=== PATIENT | male | born 1960 | race Caucasian/White ===

== ENCOUNTER 2021-05-13 07:52 | Outpatient (CLI) | payer OTHER, SELFPAY ==
--- NOTE | ~2021-05-13 | CT_ITS ---
EXAMINATION: CT soft tissue neck w con EXAM DATE: 05/13/2021 08:38 INDICATION: Lymphadenitis, sometimes difficulty swallowing. TECHNIQUE: Spiral CT of the neck was performed following intravenous injection of 75 mL Omnipaque 350 . Axial, coronal and sagittal images were reviewed. The dose-length product (DLP) for this examinat ion was 615.92 mGy-cm. The exposure was tailored according to patient size (auto mA exposure control ), and iterative reconstruction (ASIR) was used as additional dose reduction technique. There is no prior study for comparison. FINDINGS: There are multiple pathologically enlarged bilateral supraclavicular, internal jugular princess n, posterior cervical triangle lymph nodes. One of the larger lymph nodes on the left measures 1.6 x 2.4 cm and on the right measures 2.0 x 1.6 cm. There are also pathologically enlarged bilateral axill frankie lymph nodes. The superior mediastinal lymph nodes are within normal size limits. One of the righ t posterior cervical triangle lymph nodes on axial image 56 has necrosis. There is also thickened padmini opharyngeal lymphoid tissue bilaterally. Overall appearance is most consistent with lymphoma. Conside r ultrasound-guided supraclavicular core biopsy. The thyroid gland is unremarkable. The submandibular and parotid glands are symmetric. The supe rior mediastinum is unremarkable. The airway is unremarkable. Parapharyngeal and pre-glottic fat planes are preserved. The opacified vasculature is patent. The orbits are unremarkable. Visuali zed sinuses and mastoid air cells are well aerated. There is cervical spondylosis. IMPRESSION: Extensive lymphadenopathy as described above, appearance most consistent with lymphoma. C onsider chest abdomen pelvis CT and ultrasound-guided biopsy. Reviewed, dictated and finalized at location B. IMPRESSION: Extensive lymphadenopathy as described above, appearance most consi stent with lymphoma. Consider chest abdomen pelvis CT and ultrasound-guided bio psy.
--- NOTE | ~2021-05-13 | XR_ITS ---
XR cervical spine 4-5V DATE: 05/13/2021 08:21 INDICATION: Bilateral swollen lymph nodes TECHNIQUE: AP, open-mouth, lateral, swimmer views COMPARISON: None FINDINGS: C1 and C2 are normally aligned and the odontoid process is intact. No fracture or dislocati on, locked facet or prevertebral soft tissue swelling. There is approximately 1.6 mm anterolisthesis at C2-3. There is moderately severe degenerative disc disease at C3-4. There is moderate degenerative disc disease and mild retrolisthesis at C4-5. There is mild degenerative disc disease and minimal anterolisthesis at C5-6. There is moderately severe degenerative disc disease and minimal anterolisthesis C6-7. Degenerative change at the apophyseal and uncovertebral joints. IMPRESSION: Cervical spondylosis Reviewed, dictated and finalized at location A. IMPRESSION: Cervical spondylosis
[2021-05-13 08:28] LABS: Estimated Glomerular Filt Rate 56
== END 2021-05-13 07:53 | disposition home or self-care (01) ==
LOC: ANHIMG 08:00
PROVIDERS: Visit Provider Nurse Practitioner Adult Health
DX: I88.9 Nonspecific lymphadenitis, unspecified (principal); M47.892 Other spondylosis, cervical region
CPT/HCPCS: 70491; 72050; Q9967

== ENCOUNTER 2021-06-08 09:17 | Outpatient (CLI) | payer OTHER, SELFPAY ==
--- NOTE | ~2021-06-08 | US_ITS ---
EXAMINATION: US biopsy lymph node DATE: 06/08/2021 10:03 INDICATION: Cervical lymphadenopathy. TECHNIQUE: The procedure including the risks, benefits, and alternatives was discussed with the patie nt. Risks discussed included bleeding and infection. The patient understood the risks and agreed to p roceed. The skin overlying the left neck was prepped and draped in usual sterile fashion. Anesthetic was administered with 1% lidocaine subcutaneously. An 18 gauge core biopsy needle was then used to obtain 6 core biopsy specimens under continuous sonographic guidance. The entry site was cleaned and dressed. There were no immediate complications. FINDINGS: Ultrasound images demonstrate the needle in a 2.9 x 3.1 x 1.5 cm left spinal accessory princess n lymph node. IMPRESSION: 1. Ultrasound-guided core needle biopsy of a left neck lymph node. Reviewed, dictated and finalized at location A.
== END 2021-06-08 09:18 | disposition home or self-care (01) ==
PROVIDERS: Visit Provider Family Medicine
DX: I88.9 Nonspecific lymphadenitis, unspecified (principal)
CPT/HCPCS: 38505; 76942; 88184; 88305; 88341; 88342

== ENCOUNTER 2021-07-14 07:34 | Outpatient (CLI) | payer OTHER, SELFPAY ==
[2021-07-14 09:25] LABS: Alanine Aminotransferase 28 U/L (6-50); Albumin Level 4.1 g/dL (3.5-5.1); Alkaline Phosphatase 83 U/L (38-126); Anion Gap 6 mmol/L (8-16); Aspartate Amino Transferase 38 U/L (17-59); Bilirubin,Total 0.4 mg/dL (0.2-1.3); Blood Urea Nitrogen 15 mg/dL (9-20); Calcium 8.4 mg/dL (8.4-10.2); Carbon Dioxide 23 mmol/L (22-30); Chloride 112 mmol/L (98-107); Estimated Glomerular Filt Rate > 60; Glucose 118 mg/dL (65-110); Lactate Dehydrogenase 673 U/L (313-618); Potassium 4.2 mmol/L (3.4-5.0); Sodium 141 mmol/L (137-145)
[2021-07-14 12:16] LABS: Basophils Absolute Auto 0.1 K/mm3 (0.0-0.1); Basophils Percent Auto 0.5 % (0.2-1.2); Eosinophils Absolute Auto 0.1 K/mm3 (0-0.3); Eosinophils Percent Auto 0.6 % (0-4.4); Hematocrit 45.8 % (42.0-52.0); Hemoglobin 14.3 g/dL (14.0-18.0); Immature Granulocyte Absolute 0.06 K/mm3 (0.00-0.031); Immature Granulocyte Percent A 0.3 % (0-0.5); Lymphocytes Absolute Auto 13.45 K/mm3 (0.9-3.2); Lymphocytes Percent Auto 56.1 % (18.3-44.2); Mean Corpuscular HGB Conc 31.2 g/dl (32-36); Mean Corpuscular Volume 96.2 fl (80-100); Mean Platelet Volume 11.5 fl (7.4-10.4); Monocytes Absolute Auto 6.5 K/mm3 (0.1-0.6); Neutrophils Absolute Auto 3.7 K/mm3 (1.3-6.7); Neutrophils Percent Auto 15.5 % (45.5-73.1); Platelet Count Result 275 k/mm3 (150-375); Red Blood Count 4.76 M/mm3 (4.6-6.20); Red Cell Distribution Width 13.5 % (11.5-14.5)
[2021-07-14 14:06] LABS: Atypical Lymphocytes Present; Platelet Estimate Adequate (Adequate); Smudge Cells FEW
== END 2021-07-14 07:35 | disposition home or self-care (01) ==
PROVIDERS: Visit Provider Internal Medicine Hematology & Oncology
DX: C83.00 Small cell B-cell lymphoma, unspecified site (principal)
CPT/HCPCS: 36415; 80053; 83615; 85025; 88184

== ENCOUNTER 2021-07-16 07:24 | Outpatient (CLI) | payer OTHER, SELFPAY ==
--- NOTE | ~2021-07-16 | CT_ITS ---
EXAMINATION: CT abdomen pelvis wo con DATE: 07/16/2021 08:00 INDICATION: Small lymphocytic lymphoma TECHNIQUE: Computed tomography (CT) of the abdomen and pelvis was performed without intravenous contr ast. Automated exposure control and iterative reconstruction technique were employed. Exam dose: 569 .25 mGy-cm total exam DLP. COMPARISON: None. FINDINGS: The lung bases are clear. Normal heart size. No pericardial or pleural effusion. Small sliding hiatal hernia. There are numerous gallstones. No gallbladder wall thickening or pericholecystic fluid or fat strandi ng. No bile duct or pancreatic duct dilatation. No hepatic, splenic, pancreatic space-occupying mass lesion. Normal morphology of the right adrenal gland. Small lipoma or myelolipoma left adrenal gland. There is a 1.9 cm exophytic soft tissue mass along the lateral aspect of the upper pole left kidney w ith attenuation of 27 Hounsfield units. Differential diagnosis includes complicated renal cyst, hyper nephroma, lymphoma. Further evaluation with MR examination is recommended. No urinary tract calculus or hydroureteronephrosis. Normal caliber of the abdominal aorta. There is retrocrural, gastrohepatic, periportal, aortocaval, periaortic and mesenteric lymphadenopath y. Bilateral common and external iliac lymphadenopathy. Moderate prostate enlargement and moderate thickening throughout the urinary bladder wall. Moderate bilateral fat-containing inguinal hernias. Small fat-containing umbilical hernia. Normal appendix. Diverticulosis of left and right colon; no CT evidence of diverticulitis. No bowel o bstruction, bowel wall thickening, pneumatosis or intraperitoneal free air. No suspicious osteolytic or osteoblastic lesions. There is moderately severe degenerative disc diseas e at L4-5 and L5-S1. There is prominent degenerative change at the apophyseal joints of the lower lum bar and lumbosacral area. IMPRESSION: Extensive lymphadenopathy including retrocrural, gastrohepatic, periportal, aortocaval, p eriaortic, mesenteric and common and external iliac lymphadenopathy 1.9 cm exophytic mass since lateral aspect of upper pole left kidney; differential diagnosis includes cysts complicated cyst, lymphoma, hypernephroma Cholelithiasis Small sliding hiatal hernia Normal appendix Diverticulosis of colon; no CT evidence of diverticulitis Prostate enlargement Bilateral fat-containing inguinal hernias and small fat-containing umbilical hernia Reviewed, dictated and finalized at Location A. Reviewed, dictated and finalized at location A. IMPRESSION: Extensive lymphadenopathy including retrocrural, gastrohepatic, per iportal, aortocaval, periaortic, mesenteric and common and external iliac lymph adenopathy 1.9 cm exophytic mass since lateral aspect of upper pole left kidney; different ial diagnosis includes cysts complicated cyst, lymphoma, hypernephroma Cholelithiasis Small sliding hiatal hernia Normal appendix Diverticulosis of colon; no CT evidence of diverticulitis Prostate enlargement Bilateral fat-containing inguinal hernias and small fat-containing umbilical he rnia
== END 2021-07-16 07:25 | disposition home or self-care (01) ==
PROVIDERS: Visit Provider Internal Medicine Hematology & Oncology
DX: C83.00 Small cell B-cell lymphoma, unspecified site (principal); K44.9 Diaphragmatic hernia without obstruction or gangrene; K80.20 Calculus of gallbladder without cholecystitis without obstruction; K57.30 Diverticulosis of large intestine without perforation or abscess without bleeding; K40.90 Unilateral inguinal hernia, without obstruction or gangrene, not specified as recurrent; N40.0 Benign prostatic hyperplasia without lower urinary tract symptoms
CPT/HCPCS: 74176

== ENCOUNTER 2021-07-30 07:45 | Outpatient (CLI) | payer OTHER, SELFPAY ==
[2021-07-30 08:16] LABS: Hematocrit 46.6 % (42.0-52.0); Mean Corpuscular HGB Conc 32.2 g/dl (32-36); Mean Corpuscular Hemoglobin 30.1 pg (26-34); Mean Corpuscular Volume 93.6 fl (80-100); Platelet Count Result 261 k/mm3 (150-375); Red Blood Count 4.98 M/mm3 (4.6-6.20); Red Cell Distribution Width 13.7 % (11.5-14.5); White Blood Count 27.5 K/mm3 (4.5-10.0)
[2021-07-30 08:30] LABS: Partial Thromboplastin Time 25.7 SECONDS (22.3-36.8); Prothrombin Time 12.6 Seconds (11.1-14.7)
[2021-07-30 09:27] LABS: Atypical Lymphocytes Present; Band Neutrophils Percent 3 % (0-6); Lymphocytes Absolute Manual 20.07 K/mm3 (1.1-4.5); Metamyelocytes Percent 3 %; Monocytes Percent Manual 8 % (3-9); Myelocytes Percent 2 %; Neutrophils Absolute Manual 3.85 K/mm3 (1.3-6.7); Neutrophils Percent Manual 11 % (46-73); Platelet Estimate Adequate (Adequate); Smudge Cells PRESENT; Total Cells Counted 100
[2021-07-30 09:28] LABS: Anisocytosis 1+ (NORMAL); Ovalocytes 1+ (NORMAL); Poikilocytosis 1+ (NORMAL)
== END 2021-07-30 07:46 | disposition home or self-care (01) ==
LOC: ANHSURGERY 07:50
PROVIDERS: Visit Provider Surgery
DX: C91.10 Chronic lymphocytic leukemia of B-cell type not having achieved remission (principal); Z01.818 Encounter for other preprocedural examination
CPT/HCPCS: 36415; 85025; 85610; 85730

== ENCOUNTER 2021-08-03 02:05 | Day surgery (SDC) | payer OTHER, SELFPAY ==
[2021-07-28 13:54] VITALS: BMI 28.5
--- NOTE | 2021-07-28 13:55 | PCDIET ---
Report to the Outpatient Waiting Room, entrance under the green pavilion located off [facility], at time _1100_ on date _08-03-21_. OR Time: _1300_. - You and your visitor will be asked a series of questions to screen for COVID 19 for your protection. - Only one visitor is allowed at this time. - The patient visitor is requested to leave or wait in car when not with patient. - A mask is required within the hospital. Patients may have clear liquids (water, carbonated beverages, clear teas, apple juice) until 3 hours prior to surgery with a maximum of 20 ounces. - No food from midnight until time of surgery Take the following medications with a SIP of water the morning of surgery: ___None Medications to discontinue per physician None Date to take last dose Please no make-up, nail [place], hairspray, perfume, deodorant, or body powder the day of surgery. No jewelry (including any body piercings) or valuables the day of surgery, leave them at home. Please take a shower or bath the night before, or the morning of, surgery with an antibacterial soap. Wear comfortable, loose fitting clothing. Children are encouraged to wear pajamas. - Jewelry must be removed prior to entering the operating room. Rings and piercings that are not removed may be cut off. - The hospital will not accept responsibility for valuables. - Please leave all valuables, including medications, at home the day of surgery. If you are going home after surgery, a licensed [facility] ambulance driver must drive you home. - NO public transportation without another adult. - We recommend that an adult stay with you for 24 hours following discharge. - We also recommend that you do not drive, make important decision, drink alcoholic beverages, or take any drugs that were not prescribed by your health care provider for at least 24 hours after your discharge time. Follow any additional instructions given to you from your surgeon. If you or anyone in your household have experienced Covid symptoms in the past week, please notify your surgeon or the nurse liaison at the phone number below for possible testing. Telephone instructions given to ____Patient and asked if any additional questions and then verbalized understanding. Patient advised to call surgeon office or pre surgery nurse liaison [phone] if any additional questions.
--- NOTE | ~2021-08-03 | XR_ITS ---
EXAMINATION: XR chest port-a-cath/central DATE: 08/03/2021 14:54 INDICATION: Right internal jugular central venous port catheter placement TECHNIQUE: frontal view of the chest was obtained. COMPARISON: None FINDINGS: Right internal jugular central venous port catheter tip with reservoir projecting between the anterio r right second and third ribs with the distal tip projecting over the superior cavoatrial junction. B ilateral perihilar and basilar opacities. No pleural effusion or pneumothorax. The cardiomediastinal silhouette is within normal limits for AP technique. Visualized bones and soft tissues are unremarkab le. IMPRESSION: 1. Right internal jugular central venous catheter with distal tip at the superior cavoatrial junction . 2. Bilateral airspace opacities which could represent atelectasis, aspiration or pneumonia. Reviewed, dictated and finalized at location B. IMPRESSION: 1. Right internal jugular central venous catheter with distal tip at the superi or cavoatrial junction. 2. Bilateral airspace opacities which could represent atelectasis, aspiration o r pneumonia.
--- NOTE | ~2021-08-03 | XR_ITS ---
EXAMINATION: XR fl guide central line place DATE: 08/03/2021 14:33 INDICATION: Right-sided port catheter insertion. TECHNIQUE: Single fluoroscopic images of the right chest was obtained during procedure performed by Laura Coker. Radiologist was not present for the imaging or procedure. The amount of fluoroscopy time used during this procedure was 0.7 minutes. COMPARISON: None. FINDINGS: Right internal jugular central venous port catheter with distal tip projecting near the expected loca tion of the superior cavoatrial junction. Right lung volume is small. No evident pleural effusion or pneumothorax. IMPRESSION: 1. Right internal jugular central venous port catheter tip is near the superior cavoatrial junction. Reviewed, dictated and finalized at location B.
[2021-08-03] MEDS: LACTATED RINGERS 1,000 ML 30 ML IV CONT (10:02)
[2021-08-03 10:04] VITALS: BP 111/73; PULSE 65; RESP 16; TEMP 36.6; O2SAT 98
[2021-08-03] MEDS: KETOROLAC 15 MG/ML VIAL (*BKC) IV PUSH (10:04)
--- NOTE | 2021-08-03 11:04 | WPDANESEPPF ---
Anes - Initial Pre Proc Eval Procedure: Operation Date: 08/03/21 13:00 Proposed Procedures p Insertion Juan Cath - Benny Coker MD Date/Time: 08/03/21 11:04 Surgeon: Benny Coker MD Pre Op Diagnosis: small lymphocytic lymphoma Patient Data Age: 61 Gender: M Height: 1.7 m Weight: 82.6 kg Last Vital Signs Temp 36.6 C 08/03/21 10:04 Pulse 65 08/03/21 10:04 Resp 16 08/03/21 10:04 BP 111/73 08/03/21 10:04 Pulse Ox 98 08/03/21 10:04 O2 Del Method Room Air 08/03/21 10:04 Allergies Allergy/AdvReac Type Severity Reaction Status Date / Time No Known Allergies Allergy Mild Verified 08/03/21 09:40 Home Medications Medication Instructions Recorded Confirmed Type rosuvastatin 10 mg tablet 10 tablet PO HS 07/28/21 08/03/21 History Patient hx anesthesia problems: none Family hx anesthesia problems: none Results Review: All pre-operative results and documents have been reviewed as part of the pre-operative evaluation. COUNT INCLUDES THE [facility] Surgical History Surgical History (Updated 08/03/21 @ 11:04 by Jose Luis Burroughs MD) History of lumbar surgery Social History Social History Years smoked: 5 Smoking status: Former smoker Living arrangements: with family Spiritual care concerns: No Anes - Eval Final PreProcedure Day of Procedure 08/03/21 11:04 Patient weight: overweight Heart: regular rate and rhythm Lungs: clear to auscultation Airway: Mallampati scale class II Neurological: alert and oriented ASA classification: III Emergent: no Anesthetic plan: proceed Anesthesia type and monitoring: general GIVS and standard monitoring Results Review: All pre-operative results and documents have been reviewed as part of the pre-operative evaluation. Informed Consent: The patient's anesthetic plan and its attendant risks and benefits were discussed with the patient/family/POA. Questions were solicited and answers provided to the satisfaction of the patient/family/POA.
--- NOTE | 2021-08-03 13:19 | PM.HPGS ---
History of Present Illness History of Present Illness Consent: Risks, benefits, and alternatives of placement of a Port-A-Cath for chemotherapy have been discussed and questions answered. Patient agrees to proceed with procedure. 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 He is planning to undergo chemotherapy at the direction of Dr. Peck. In May of this year he underwent an ultrasound-guided cervical lymph node biopsy and the above was the result. He had a recent appointment with Dr. Peck and they have decided to proceed with chemotherapy. He is planning on receiving this through a port and catheter. Review of Systems Constitutional: Constitutional: Reports no additional constitutional complaints, Reports fatigue and Denies malaise Eyes: Eyes: Denies change in vision and Denies loss of vision ENT: Reports Normal hearing present, Denies change in voice, Denies dizziness, Denies hoarseness and Denies sore throat Cardiovascular: Cardiovascular: Denies chest pain, Denies leg edema and Denies dyspnea Comments: History of hyperlipidemia Respiratory: Respiratory: Denies cough, Denies dyspnea and Denies wheezing Gastrointestinal: Gastrointestinal: Denies hematochezia, Denies change in bowel habits and Denies heartburn Genitourinary: Genitourinary: Denies urinary frequency and Denies urinary incontinence Neurologic: Reports Normal hearing present, Denies confusion, Denies dizziness, Denies loss of vision, Denies memory loss and Denies seizure-like activity Psychiatric: Psychiatric: Denies confusion, Denies depression and Denies memory loss Endocrine: Endocrine: Denies cold intolerance and Reports fatigue Hematologic/Lymphatic: Hematologic/Lymphatic: Denies easy bleeding and Denies easy bruising Allergic/Immunologic: Allergic/Immunologic: Denies wheezing [facility] Surgical History Surgical History (Updated 08/03/21 @ 11:04 by Jose Luis Burroughs MD) History of lumbar surgery Social History Social History Years smoked: 5 Smoking status: Former smoker Living arrangements: with family Spiritual care concerns: No Meds Home Medications and Allergies Home Medications Medication Instructions Recorded Confirmed Type rosuvastatin 10 mg tablet 10 tablet PO HS 07/28/21 08/03/21 History hydrocodone 7.5 mg-acetaminophen 1 tablet PO Q6H PRN pain #7 tabs 08/03/21 Rx 325 mg tablet Allergies Allergy/AdvReac Type Severity Reaction Status Date / Time No Known Allergies Allergy Mild Verified 08/03/21 09:40 Vital Signs Vital Signs - 24 hr 08/03/21 10:04 Temperature 36.6 C Pulse Rate 65 Respiratory Rate 16 Blood Pressure 111/73 Pulse Oximetry 98 Oxygen Delivery Room Air Exam Const: General: cooperative, healthy appearing, no acute distress, well developed and alert; No confusion Nutritional Appearance: well nourished Orientation/consciousness: patient oriented x3 and No confusion Limitations: no limitations HENMT: Head: normal to inspection, normocephalic and atraumatic Ears: hearing grossly normal bilaterally General nose exam: Normal external nose present Face and sinus: no edema Mouth: Yes Normal oral and palatal mucosa present and Yes lip normal Throat: posterior oropharynx normal Eyes: General: appearance normal, both eyes and all related structures Sclera: sclerae normal Pupils: Equal, round and reactive pupils present EOM: EOMs intact bilaterally Neck: Neck: normal visual inspection, no lymphadenopathy, trachea midline and supple Resp: Effort & Inspection: normal respiratory effort and able to speak in complete sentences Auscultation: clear to auscultation bilaterally Cardio: Jugular venous distension: no JVD Rate: regular rate Rhythm: regular rhythm GI: Inspection: normal t
--- NOTE | 2021-08-03 13:20 | SUR.PREOP ---
1225 Discussed with patient about delay. Patient very upset as we called him in due to a cancellation. Explained to patient that unseen events sometimes cause surgeries to last longer than expected. Also explained to patient he could request to rescedule surgery but that we would lose the work already done. Patient at this time continues to wait. [address] Coker, explained to patient they were cleaning the room getting ready for him next. Seems a little less upset.
--- NOTE | 2021-08-03 13:24 | WPDHPUPDATE1 ---
History and Physical Update Update Date/Time: 08/03/21 13:24 History and Physical has been reviewed, including an updated exam of the patient. There are NO changes in the patient's condition. Risks, benefits, and alternatives have been discussed and questions answered. Patient agrees to proceed with procedure.
[2021-08-03] MEDS: ceFAZolin 2 GM/D5W 50 ML 2 GM/50 ML BAG IVPB (13:43)
[2021-08-03] MEDS: LIDO 2%/EPINEPHRINE 1:100,000 20 ML VIAL INFILTRATE (14:09)
[2021-08-03] MEDS: HEPARIN SODIUM 5,000 UNITS/ML VIAL 5000 UNITS IRRIGATION (14:15)
[2021-08-03 14:34] VITALS: BP 99/62; PULSE 80; RESP 14; O2SAT 94
[2021-08-03 14:50] VITALS: BP 106/65; PULSE 72; RESP 14; O2SAT 96
--- NOTE | 2021-08-03 14:59 | W.PM.PROC2 ---
Procedure Note - Detailed Date of Procedure 08/03/21 Pre-op Diagnosis small cell lymphocytic lymphoma and chronic lymphocytic Leukemia Post-op Diagnosis Same Procedure Performed 1. Placement of Juan-cath. 2. Use of US for vascular access site selection and visualization of needle access to vein. Surgeon Benny Coker MD Steam Fitter Supervisor Maintenance Edd [email or web address].OR captain assistant Anesthesia Local (with 0.5% Marcaine with epinepherine) and Other (GIVS) Indications Patient has recently diagnosed chronic lymphocytic leukemia. He has significant cervical and upper thoracic lymphadenopathy. He is in need of chemotherapy at the direction of Dr. Peck. Findings Normal appearing right neck vascular anatomy. Chest x-ray appears to show some shift to the left of the trachea on the intrathoracic part. Description of Procedure Patient was seen and marked in the pre-op area prior to coming to the OR. Patient was brought to the operating room. Patient was placed supine on the operating table and general IV sedation was induced. The nurse telemetry nurse provided And continuous monitoring, oxygen, and IV sedation or general anesthesia with IV sedation as was appropriate for the patient's condition. See anesthesia notes). Patient's head was carefully turned to the left side while in the supine position and the patient's entire neck and anterior chest on both sides was prepped and draped in the usual sterile fashion. Following this the appropriate time-out was completed confirming procedure and patient. We confirmed that all the needed equipment was present in the room including the vascular ultrasound probe in machine. Following this the ultrasound probe was draped into the field and using the probe we carefully identified the carotid artery and jugular vein on the right neck. I then saved an image of the vascular anatomy of the neck, which documented the selected vessels patency and transferred it from the ultrasound machine to the Interview[employer] chart. I marked the skin directly over the right internal jugular vein. I then used an 11 blade knife to make a small makenna in the skin. Following this, using the continuous ultrasound guidance, a Cook needle was placed through the skin incision and on into this vein. I then was able to draw back good dark blood. Once this was completed a guidewire using a J-tip was advanced through the needle and then the needle and the guidewire cover were withdrawn. C-arm fluoroscopy was used to confirm that the guidewire was nicely in the central venous system. Once this was confirmed with the C - arm, I preceded on by making the pocket for the port on the patient's anterior right chest approximately 3 centimeters below the clavicle overlying the chest wall. Local anesthetic was infiltrated into the skin where there was a transverse incision marked out. Incision was made and we made a pocket inferior to the incision with just a little dissection superior. The Bard low-profile port was tried in the pocket and seemed to fit well. Following this the catheter which had been placed on a tunneling device was tunneled from the port site on the anterior right chest up to the right neck where the small incision had been made slightly larger with an #11 blade knife. Then the catheter was pulled through so that we would have 15 centimeters to put into the central venous system once the dilation took place. Following this we placed the dilator and sheath over the guidewire in the jugular vein and carefully dilated the tract into the central venous system. The guidewire and dilator were then removed, carefully covering the end of the sheath to prevent air embolus. The end of the catheter which had been removed from the tunneling device and the tip checked was then inserted into the sheath and into the neck. I then carefully pulled the 2 arms of the tear-away sheath away as the mortgage assistant held the catheter in position with a DeBakey forceps. Following this we checked th
[2021-08-03 15:10] VITALS: BP 97/65; PULSE 71; RESP 14; O2SAT 95
[2021-08-03 15:40] VITALS: BP 106/77; PULSE 57; RESP 14
== END 2021-08-03 15:55 | disposition home or self-care (01) ==
PROVIDERS: Visit Provider Surgery
PROC: (CPT 36561; principal; 2021-08-03 13:00)
DX: C91.10 Chronic lymphocytic leukemia of B-cell type not having achieved remission (principal); Z87.891 Personal history of nicotine dependence
CPT/HCPCS: 36561; 36415; 76937; 77001; 85025; 85610; 85730; C1788; J0690; J1100; J1644; J1885; J2250; J2405; J2704; J3010; J7030; J7120

== ENCOUNTER 2022-02-13 09:33 | Outpatient (CLI) | payer OTHER, SELFPAY ==
--- NOTE | ~2022-02-13 | MR_ITS ---
EXAMINATION: MR brain/brain stem wo/w con DATE: 02/13/2022 10:45 INDICATION: Small lymphocytic lymphoma. TECHNIQUE: Magnetic resonance imaging (MRI) of the brain and brainstem was performed without and with 16 mL MultiHance intravenous contrast. COMPARISON: None. FINDINGS: There are scattered areas of nonspecific increased T2-weighted signal intensity in the cere bral white matter, which is within normal limits for the patient's age. There is no intracranial hemo rrhage, acute infarction, or abnormal intracranial mass lesion. The ventricles are normal in size. Th e paranasal sinuses are clear. The orbits are normal. The mastoid air cells are normal. IMPRESSION: 1. Normal aging brain. Reviewed, dictated and finalized at location A. E TRANSPLANT IMPRESSION: 1. Normal aging brain.
== END 2022-02-13 09:34 | disposition home or self-care (01) ==
PROVIDERS: PCP Family Medicine; Visit Provider Internal Medicine Hematology & Oncology
DX: C83.00 Small cell B-cell lymphoma, unspecified site (principal)
CPT/HCPCS: 70553; A9577

== ENCOUNTER 2022-02-22 07:27 | Outpatient (CLI) | payer BC, SELFPAY ==
--- NOTE | ~2022-02-22 | CT_ITS ---
EXAMINATION: CT chest abdomen pelvis w con DATE: 02/22/2022 07:56 INDICATION: Lymphocytic lymphoma TECHNIQUE: Computed tomography (CT) of the chest, abdomen, and pelvis was performed with 100 mL Omnip aque-350 intravenous contrast. Automated exposure control and iterative reconstruction technique were employed. The dose-length product was 1155.96 mGy-cm. COMPARISON: None FINDINGS: CHEST CT: Right internal jugular central venous port catheter with distal tip at the superior cavoatrial juncti on. There are couple small calcified nodules in the right upper and lower lobes along with calcified left hilar lymph mediastinal nodes consistent with old granulomatous disease. No other suspicious pul monary nodules, pneumonia, pulmonary edema or pleural effusion. Heart size is normal. No pericardial effusion. Thoracic aorta is normal in caliber with no dissection. Marked decrease in size of the prev iously mildly enlarged lower thoracic periaortic lymph nodes consistent with response to treatment of reported lymphoma. No pathologically enlarged abdominal or pelvic lymphadenopathy. Small sliding-typ e hiatal hernia. Mild to moderate thoracic spondylosis. ABDOMEN/PELVIS CT: A few additional small hepatic and splenic calcified granulomata. Somewhat heterogeneous diffuse hepa tic steatosis. Again seen are multiple calcified gallstones within the nondistended gallbladder. No g allbladder wall thickening although there is unchanged subtle haziness to the pericholecystic fat sug gesting possibility of chronic cholecystitis. No intra or extrahepatic biliary ductal dilation. 1 cm macroscopic fat attenuation left adrenal myelolipoma. Right adrenal gland and kidney are normal. 2.2 cm exophytic left renal cyst. There is moderate colonic diverticulosis with a sigmoid and descending colon predominance. There is no adjacent inflammatory change to suggest diverticulitis. Small bowel and appendix are normal. Tiny fat-containing umbilical hernia. Bilateral fat-containing inguinal bright ias, larger on the left extending to near the level of the scrotum and with change of prior inguinal hernia repair on the right. Likely vasectomy clips bilaterally at the base of the scrotum. Unchanged mild diffuse bladder wall thickening likely related to chronic outlet obstruction from the enlarged p rostate. No free intraperitoneal gas or fluid. Mild lumbar dextrocurvature with moderate to severe sp ondylosis. Interval resolution of the prior abdominal and pelvic lymphadenopathy most consistent with response t o treatment of prior lymphoma. For reference a lymph node anterior to the bifurcation of the celiac a xis is decreased from 2.2 x 2.3 cm currently measuring 1.3 x 0.9 cm. A prior 3.0 x 1.9 cm lymph node at the root of mesentery is decreased to 1.3 x 0.6 cm. The right external iliac lymph node has measur ed 5.6 x 2.7 cm has decreased to 1.9 x 0.7 cm. IMPRESSION: 1. Significant interval decrease in size of multiple lymph nodes in the abdomen and pelvis and previo us the visualized portion of the lower thorax consistent with response to treatment of reported lymph nani. No residual pathologically enlarged lymphadenopathy. 2. Small sliding-type hiatal hernia. 3. Cholelithiasis with chronic haziness to the fat surrounding the gallbladder which is without wall thickening or dilation to suggest acute cholecystitis but which could represent changes of chronic ch olecystitis. 4. Diffuse hepatic steatosis. 5. Moderate diverticulosis. 6. Chronic diffuse mild bladder wall thickening likely related to chronic outlet obstruction from the enlarged prostate. 7. Bilateral fat-containing inguinal hernias, larger on the left and with change of hernia repair on the right. Reviewed, dictated and finalized at location A. [employer]
== END 2022-02-22 07:28 | disposition home or self-care (01) ==
PROVIDERS: PCP Family Medicine; Visit Provider Internal Medicine Hematology & Oncology
DX: C83.00 Small cell B-cell lymphoma, unspecified site (principal); K76.0 Fatty (change of) liver, not elsewhere classified; K57.30 Diverticulosis of large intestine without perforation or abscess without bleeding; K44.9 Diaphragmatic hernia without obstruction or gangrene; K40.20 Bilateral inguinal hernia, without obstruction or gangrene, not specified as recurrent
CPT/HCPCS: 71260; 74177; Q9967

== ENCOUNTER 2022-06-11 01:32 | Day surgery (SDC) | payer BC, SELFPAY ==
[2022-06-03 13:25] VITALS: BMI 29.2
--- NOTE | 2022-06-03 13:31 | PC.NURSE ---
Report to the Outpatient Waiting Room, entrance under the green pavilion located off [facility], at time 0630 on date 06/11/22. Planned Procedure Time: 0830. Time changes happen often and if your time is changed the preop area will call you the afternoon before. - You and your visitor will be asked to self-screen and do not enter if you have any COVID symptoms. - A mask is optional within the hospital at this time. Patients may have clear liquids (water, carbonated beverages, clear teas, apple juice) until 3 hours prior to surgery with a maximum of 20 ounces. - No food from midnight until time of surgery Take the following medications with a SIP of water the morning of surgery: N/A DO NOT STOP ANY OF YOUR OTHER PRESCRIPTION MEDICATIONS PRIOR TO SURGERY ?EXCEPT THE FOLLOWING Medications to discontinue per physician: N/A Date to take last dose: N/A Please no make-up, nail wolof, hairspray, perfume, deodorant, or body powder the day of surgery. No jewelry (including any body piercings) or valuables the day of surgery, leave them at home. Please take a shower or bath the night before, or the morning of, surgery with an antibacterial soap. Wear comfortable, loose fitting clothing. - Jewelry must be removed prior to entering the operating room. Rings and piercings that are not removed may be cut off. - The hospital will not accept responsibility for valuables. - Please leave all valuables, including medications, at home the day of surgery. If you are going home after surgery, a licensed belly dump driver must drive you home. - NO public transportation without another adult if you receive anesthesia. - We recommend that an adult stay with you for 24 hours following discharge. - We also recommend that you do not drive, make important decision, drink alcoholic beverages, or take any drugs that were not prescribed by your health care provider for at least 24 hours after your discharge time. Follow any additional instructions given to you from your surgeon. If you or anyone in your household have experienced Covid symptoms in the past week, please notify your surgeon or the nurse liaison at the phone number below for possible testing. Telephone instructions given to PT - SERAFIN PEDRO and asked if any additional questions and then verbalized understanding. Patient advised to call surgeon office or pre surgery nurse liaison [phone] if any additional questions.
--- NOTE | 2022-06-11 07:34 | P.HP_ITS ---
H&P: HPI History of Present Illness Date/Time: 06/11/22 07:34 Chief Complaint: Needs port removed Narrative: Pt with hx of leukemia and had placement of right IJ vein portacatheter placed about 8 months ago. He is now in remission and no longer needs the port. Review of Systems Review of Systems: I have discussed the patient with Myrtle Cantu APN and agree with the documented note below and care plan. [facility] Surgical History Surgical History History of lumbar surgery Social History Social History Years smoked: 15 Smoking status: Former smoker Tobacco type: cigarettes Smoking end date: 02/14/02 Alcohol intake: never Substance use: never Substance use type: does not use Living arrangements: with family Spiritual care concerns: No Meds Home Medications and Allergies Home Medications Medication Instructions Recorded Confirmed Type rosuvastatin 10 mg tablet 10 tablet PO HS 07/28/21 06/03/22 History Allergies Allergy/AdvReac Type Severity Reaction Status Date / Time No Known Allergies Allergy Mild Verified 06/03/22 13:24 Exam Narrative: Right upper anterior chest port in place. No redness or rash. Skin healthy. Const: General: comfortable and no acute distress Eyes: General: appearance normal, both eyes and all related structures Sclera: sclerae normal Pupils: Equal, round and reactive pupils present Neck: Neck: supple and no JVD Resp: Effort & Inspection: normal respiratory effort Auscultation: clear to auscultation bilaterally Cardio: Rate: regular rate Rhythm: regular rhythm GI: GI Palp: Yes Soft to palpation, No Firmness to palpation present (GI), No Tenderness to palpation present (GI), No Guarding due to palpation present (GI) and No Hernia present Neuro: Speech: normal speech Sensory Exam: normal sensation Psych: Mental Status: mental status grossly normal Affect: normal affect Assessment and Plan Assessment and plan (1) CLL (chronic lymphocytic leukemia): Code(s): C91.10 - Chronic lymphocytic leukemia of B-cell type not having achieved remission Status: Acute Assessment and Plan: CLL now in remission. Oncology has requested removal of the portacatheter. Will proceed to the OR for removal of the right IJ vein port today. Risks, benefits, indications, and expected outcomes were discussed in detail with the patient and/or family. They understand and I have answered all other questions. They wished to proceed with surgery as outlined above.
[2022-06-11 07:50] VITALS: BP 125/72; PULSE 67; RESP 14; TEMP 36.2; O2SAT 97
[2022-06-11] MEDS: LACTATED RINGERS 1,000 ML 30 ML IV CONT (07:53)
--- NOTE | 2022-06-11 08:16 | P.PNAN_ITS ---
Anes - Initial Pre Proc Eval Procedure: Operation Date: 06/11/22 08:30 Proposed Procedures p Removal Juan Cath - Zia Price MD Date/Time: 06/11/22 08:16 Surgeon: Zia Price MD Pre Op Diagnosis: Small Lymphocytic Lymphoma Patient Data Age: 62 Gender: M Height: 1.73 m Weight: 86.95 kg Last Vital Signs Temp 36.2 C L 06/11/22 07:50 Pulse 67 06/11/22 07:50 Resp 14 06/11/22 07:50 BP 125/72 06/11/22 07:50 Pulse Ox 97 06/11/22 07:50 O2 Del Method Room Air 06/11/22 07:50 Allergies Allergy/AdvReac Type Severity Reaction Status Date / Time No Known Allergies Allergy Mild Verified 06/11/22 07:52 Home Medications Medication Instructions Recorded Confirmed Type rosuvastatin 10 mg tablet 10 tablet PO HS 07/28/21 06/03/22 History Patient hx anesthesia problems: none Family hx anesthesia problems: none Results Review: All pre-operative results and documents have been reviewed as part of the pre-operative evaluation. [facility] Surgical History Surgical History History of lumbar surgery Social History Social History Years smoked: 15 Smoking status: Former smoker Tobacco type: cigarettes Smoking end date: 02/14/02 Alcohol intake: never Substance use: never Substance use type: does not use Living arrangements: with family Spiritual care concerns: No Anes - Eval Final PreProcedure Day of Procedure 06/11/22 08:16 Patient weight: overweight Heart: regular rate and rhythm Lungs: decreased breath sounds Airway: Mallampati scale class II Neurological: alert and oriented Last oral intake: >/= 8 hours ASA classification: III Emergent: no Anesthetic plan: proceed Anesthesia type and monitoring: general GIVS and standard monitoring Results Review: All pre-operative results and documents have been reviewed as part of the pre- operative evaluation. Informed Consent: The patient's anesthetic plan and its attendant risks and benefits were discussed with the patient/family/POA. Questions were solicited and answers provided to the satisfaction of the patient/family/POA.
--- NOTE | 2022-06-11 09:04 | WPDHPUPDATE1 ---
History and Physical Update Update Date/Time: 06/11/22 09:04 History and Physical has been reviewed, including an updated exam of the patient. There are NO changes in the patient's condition. Risks, benefits, and alternatives have been discussed and questions answered. Patient agrees to proceed with procedure.
[2022-06-11] MEDS: ceFAZolin 2 GM/D5W 50 ML 2 GM/50 ML BAG IVPB (09:06)
[2022-06-11] MEDS: BUPivacaine HCL 0.5% PF 30 ML VIAL INFILTRATE (09:21)
[2022-06-11 09:48] VITALS: BP 107/75; PULSE 69; RESP 16; O2SAT 92
[2022-06-11 10:05] VITALS: BP 116/77; PULSE 64; RESP 16; O2SAT 95
[2022-06-11 10:35] VITALS: BP 107/76; PULSE 56; RESP 16
--- NOTE | 2022-06-14 10:15 | W.PM.PROC2 ---
Procedure Note - Detailed Date of Procedure 06/14/22 Pre-op Diagnosis Small Lymphocytic Lymphoma Post-op Diagnosis Same Procedure Performed Removal of right internal jugular vein juan catheter. Surgeon iZa Price MD Anesthesia MAC Indications Patient is a 62-year-old gentleman who previously had a Port-A-Cath placed for treatment of chronic lymphocytic leukemia. He is now in remission and no longer needs to juan catheter. This was verified with his oncologist requested the catheter be removed. Presents now for removal the Juan catheter. Findings None. Description of Procedure After informed consent was obtained patient was brought to the operating room was placed supine position and then IV sedation was administered by anesthesia. The right upper anterior chest area the juan catheter was then prepped and draped in usual sterile fashion. A time-out was then performed correctly identifying the patient as well as procedure to be performed. Site marking was confirmed and he was given perioperative IV antibiotics. I used 1% lidocaine mixed with 0.5% Marcaine injected around the old scar just around the Juan catheter. And then used a scalpel to excise away the old scar and then dissected down through the subcutaneous tissues to the port itself. I then circumferentially the divided the scar tissue around the port and the 3 sutures which was holding the port in place. Once the port was completely freed from the subcutaneous port pocket I then gently held traction on the port and pulled the catheter out of the right internal jugular vein. The tip of the catheter appeared to be intact. Pressure was held on the area the right internal jugular vein for 5minutes to achieve hemostasis. I then irrigated out the port pocket with sterile saline solution. Stasis was good. I then fulgurated the scar tissue in the port pocket electrocautery. The incision was then closed utilizing interrupted 3-0 Vicryl sutures in the subcutaneous tissues. This is then followed by running subcuticular 4-0 Monocryl suture to approximate the skin edges. Incision was then cleaned the skin glue was applied for final dressing. The patient tolerated the procedure well no complications. All sponges, needles, and instrument counts were correct at the end procedure. EBL was _5__cc. The patient was awakened and taken to recovery in stable and satisfactory condition. Implants Juan catheter removed Estimated Blood Loss 5 Drains No Packing No Pathology None sent Complications No immediate complications Condition Stable Disposition PACU [facility] Billing Surgery - Charge Forward: Surgery Billing
== END 2022-06-11 10:42 | disposition home or self-care (01) ==
PROVIDERS: PCP Family Medicine; Visit Provider Surgery
PROC: (CPT 36589; principal; 2022-06-11 08:30)
DX: Z45.2 Encounter for adjustment and management of vascular access device (principal); Z85.72 Personal history of non-Hodgkin lymphomas
CPT/HCPCS: 36590; J0690; J2250; J2704; J3010; J7120

== ENCOUNTER 2022-07-22 09:58 | Emergency (ER) | payer BC, SELFPAY ==
[2022-07-22 10:18] VITALS: BP 111/69; PULSE 66; RESP 18; TEMP 36.3; O2SAT 99
--- NOTE | 2022-07-22 10:19 | ED.SKABFB ---
HPI - Skin/Abscess/Foreign Bdy General Chief complaint: Skin/Abscess/Foreign Body Stated complaint: rash Time Seen by Provider: 07/22/22 10:05 Source: patient Mode of arrival: ambulatory Limitations: no limitations History of Present Illness HPI narrative: 62-year-old male presents with complaint of rash to left buttock that is itching and burning for the past 3 days. Continues to spread. Was unable to get an appointment with his primary care physician. Denies any recent exposure to poison anju. All systems reviewed and negative except as noted above. Related Data Home Medications Medication Instructions Recorded Confirmed rosuvastatin 10 mg tablet 10 tablet PO HS 07/28/21 07/22/22 Allergies Allergy/AdvReac Type Severity Reaction Status Date / Time No Known Allergies Allergy Mild Verified 07/22/22 10:28 Review of Systems Review of Systems: CONSTITUTIONAL: Denies fever, chills, or sweats. EYES: Denies visual changes, redness, or discharge. ENT: Denies rhinorrhea, congestion, sore throat, or otalgia. CARDIOVASCULAR: Denies chest pain, palpitations, or edema. RESPIRATORY: Denies cough or dyspnea. GASTROINTESTINAL: Denies abdominal pain, nausea, vomiting, or diarrhea. GENITOURINARY: Denies dysuria or hematuria. SKIN: Reports itchy, burning rash to left buttock. MUSCULOSKELETAL: Denies back pain, joint pain, or myalgia. NEUROLOGIC: Denies headache, numbness, or weakness. PSYCHIATRIC: Denies anxiety or depression. All other systems reviewed are negative, except as documented in HPI. PMFSH Surgical History Surgical History History of lumbar surgery Social History Social History Years smoked: 15 Smoking status: Former smoker Tobacco type: cigarettes Smoking end date: 02/14/02 Alcohol intake: never Substance use: never Substance use type: does not use Living arrangements: with family Spiritual care concerns: No Comments At time of signature, agree with nursing past medical, surgical, social and family history. There is no relevant family history pertinent to the presenting complaint. Exam Narrative: GENERAL: This is a well-nourished, well-developed patient, in no apparent distress. HEAD: normocephalic, atraumatic. EYES: PERRL. Sclera clear/white. Vision is grossly intact. EARS: External ears normal NOSE: External nose normal NECK: Neck supple, non-tender without lymphadenopathy, masses or thyromegaly. CARDIOVASCULAR: Regular rate and rhythm without murmurs, gallops, or rubs. RESPIRATORY: Clear to auscultation. Breath sounds equal bilaterally. No wheezes, rales, or rhonchi. SKIN: warm, Dry, intact, good texture and turgor. Erythematous, vesicular rash to left buttock. NEURO: awake, alert, and oriented to person, place and time. There were no obvious focal neurologic abnormalities. EXTREMITIES: No joint tenderness, effusion, or edema noted. Course Course Level of Care: Express Care Visit Vital Signs Vital signs: Vital Signs Temperature 36.3 C L 07/22/22 10:18 Pulse Rate 66 07/22/22 10:18 Respiratory Rate 18 07/22/22 10:18 Blood Pressure 111/69 07/22/22 10:18 Pulse Oximetry 99 07/22/22 10:18 Oxygen Delivery Room Air 07/22/22 10:18 Temperature 36.3 C L 07/22/22 10:18 Pulse Rate 66 07/22/22 10:18 Respiratory Rate 18 07/22/22 10:18 Blood Pressure 111/69 07/22/22 10:18 Pulse Oximetry 99 07/22/22 10:18 Oxygen Delivery Room Air 07/22/22 10:18 Reviewed MDM - Skin/Abscess/Foreign Bdy MDM Narrative Medical decision making narrative: Patient is aware of diagnosis, understands and agrees to treatment plan. Anticipatory guidance given. Patient agrees to follow-up as directed and is aware of reasons to seek care at the emergency department. Portions of this record may have been created with voice recognition
== END 2022-07-22 10:39 | disposition home or self-care (01) ==
PROVIDERS: Emergency Provider Nurse Practitioner Family; PCP Family Medicine
DX: B02.9 Zoster without complications (principal); Z87.891 Personal history of nicotine dependence
CPT/HCPCS: 99213; G0463

== ENCOUNTER 2022-08-02 01:37 | Day surgery (SDC) | payer BC, SELFPAY ==
[2022-07-16 10:51] VITALS: BMI 28.3
--- NOTE | 2022-07-21 11:11 | SUR.PREOP ---
07/21/22 Terri spoke with patient regarding his procedure. Patient stated that he has a rash in his genital area and is concerned about having the procedure done with the rash. He said he noticed the rash on Tuesday when he got back from [employer]. He said the rash is not getting any better but not getting any worse. I encourage the patient to make an appointment and go see his primary provider. I went ahead and moved his procedure to August 02 and the patient was in agreement with that to give him time to get the rash cleared up.
--- NOTE | 2022-07-21 14:48 | PC.NURSE ---
Recent interview completed 07/16/22. Pt states no change in medical history or medications. Pt updated with new date and time of procedure.
--- NOTE | 2022-07-30 14:23 | PM.HPGS ---
History of Present Illness History of Present Illness Consent: Risks, benefits, and alternatives have been discussed and questions answered. Patient agrees to proceed with procedure. Chief complaint: GERD,N&V,black tarry stools Narrative: Satish Steiner is a 62 year old male With blood in the stool. He has had acid reflux symptoms and also , 2 weeks ago, had severe nausea vomiting. that lasted about 24 hours. At that time also he had noticed that his stools were black. He has had discomfort in the epigastric area which she suspects is from his hiatal hernia. He had polyps removed at that time his last colonoscopy about 6 years ago which was done in [place]. Review of Systems Review of Systems: All systems reviewed & are unremarkable except as noted in HPI and below PMFSH Surgical History Surgical History History of lumbar surgery Social History Social History Years smoked: 15 Smoking status: Former smoker Tobacco type: cigarettes Smoking end date: 02/14/02 Alcohol intake: never Substance use: never Substance use type: does not use Living arrangements: with family Spiritual care concerns: No Meds Home Medications and Allergies Home Medications Medication Instructions Recorded Confirmed Type rosuvastatin 10 mg tablet 10 tablet PO HS 07/28/21 07/22/22 History triamcinolone acetonide 0.1 % 1 applic topical BID poison anju 07/22/22 08/02/22 Rx topical cream #30 grams Allergies Allergy/AdvReac Type Severity Reaction Status Date / Time No Known Allergies Allergy Mild Verified 08/02/22 11:16 Exam Const: General: alert Orientation/consciousness: patient oriented x3 Resp: Auscultation: clear to auscultation bilaterally Cardio: Rhythm: regular rhythm GI: GI Palp: Yes Soft to palpation and No Tenderness to palpation present (GI) Neuro: General: patient oriented x3 Assessment and Plan Assessment and plan (1) Melena: Code(s): K92.1 - Melena Status: Acute Assessment and Plan: EGD with possible biopsy or dilatation or cautery.Colonoscopy with possible biopsy or polypectomy or cautery or injection of substances. (2) Colon cancer screening: Code(s): Z12.11 - Encounter for screening for malignant neoplasm of colon Status: Acute Assessment and Plan: Colonoscopy with possible biopsy or polypectomy or cautery or injection of substances.
[2022-08-02 11:19] VITALS: BP 135/84; PULSE 77; RESP 18; TEMP 36.6; O2SAT 98
[2022-08-02] MEDS: LACTATED RINGERS 1,000 ML 150 ML IV CONT (11:38)
--- NOTE | 2022-08-02 11:57 | P.CONGI_ITS ---
GI Consult Note Consult date/time: 08/02/22 11:57 HPI: Satish Steiner is a 62 year old male [facility] Surgical History Surgical History History of lumbar surgery Social History Social History Years smoked: 15 Smoking status: Former smoker Tobacco type: cigarettes Smoking end date: 02/14/02 Alcohol intake: never Substance use: never Substance use type: does not use Living arrangements: with family Spiritual care concerns: No Meds Home Medications and Allergies Home Medications Medication Instructions Recorded Confirmed Type rosuvastatin 10 mg tablet 10 tablet PO HS 07/28/21 07/22/22 History triamcinolone acetonide 0.1 % 1 applic topical BID poison anju 07/22/22 08/02/22 Rx topical cream #30 grams Allergies Allergy/AdvReac Type Severity Reaction Status Date / Time No Known Allergies Allergy Mild Verified 08/02/22 11:16 Vital Signs Vital Signs - 24 hr 08/02/22 11:19 Temperature 36.6 C Pulse Rate 77 Respiratory Rate 18 Blood Pressure 135/84 Pulse Oximetry 98 Oxygen Delivery Room Air
--- NOTE | 2022-08-02 12:43 | P.PNAN_ITS ---
Anes - Initial Pre Proc Eval Procedure: Operation Date: 08/02/22 12:30 Proposed Procedures p Esophagogastroduodenoscopy & Colonoscopy - Law Granados MD Date/Time: 08/02/22 12:43 Surgeon: Law Granados MD Pre Op Diagnosis: GERD,N&V,black tarry stools Patient Data Age: 62 Gender: M Height: 1.7 m Weight: 83.1 kg Last Vital Signs Temp 97.8 F 08/02/22 11:19 Pulse 77 08/02/22 11:19 Resp 18 08/02/22 11:19 BP 135/84 08/02/22 11:19 Pulse Ox 98 08/02/22 11:19 O2 Del Method Room Air 08/02/22 11:19 Allergies Allergy/AdvReac Type Severity Reaction Status Date / Time No Known Allergies Allergy Mild Verified 08/02/22 11:16 Home Medications Medication Instructions Recorded Confirmed Type rosuvastatin 10 mg tablet 10 tablet PO HS 07/28/21 07/22/22 History triamcinolone acetonide 0.1 % 1 applic topical BID poison anju 07/22/22 08/02/22 Rx topical cream #30 grams Patient hx anesthesia problems: none Family hx anesthesia problems: none Results Review: All pre-operative results and documents have been reviewed as part of the pre- operative evaluation. [facility] Surgical History Surgical History History of lumbar surgery Social History Social History Years smoked: 15 Smoking status: Former smoker Tobacco type: cigarettes Smoking end date: 02/14/02 Alcohol intake: never Substance use: never Substance use type: does not use Living arrangements: with family Spiritual care concerns: No Anes - Eval Final PreProcedure Day of Procedure 08/02/22 12:43 Patient weight: normal Heart: regular rate and rhythm Lungs: clear to auscultation Airway: Mallampati scale class II Neurological: alert and oriented Last oral intake: >/= 8 hours ASA classification: III Emergent: no Anesthetic plan: proceed Anesthesia type and monitoring: general GIVS and standard monitoring Results Review: All pre-operative results and documents have been reviewed as part of the pre- operative evaluation. Informed Consent: The patient's anesthetic plan and its attendant risks and benefits were discussed with the patient/family/POA. Questions were solicited and answers provided to the satisfaction of the patient/family/POA.
--- NOTE | 2022-08-02 13:12 | SUR.OPER ---
EGD START 1248, END 1252 COLONOSCOPY START 1258, END 1309
[2022-08-02 13:15] VITALS: BP 108/79; PULSE 74; RESP 17; O2SAT 92
[2022-08-02 13:25] VITALS: BP 107/70; PULSE 76; RESP 19; O2SAT 94
[2022-08-02 13:35] VITALS: BP 114/75; PULSE 70; RESP 19; O2SAT 98
== END 2022-08-02 14:01 | disposition home or self-care (01) ==
PROVIDERS: PCP Family Medicine; Visit Provider Internal Medicine Gastroenterology
PROC: 0DJ08ZZ Inspection of Upper Intestinal Tract, Via Natural or Artificial Opening Endoscopic (ICD-10-PCS; CPT 43235; principal; 2022-08-02 12:30)
DX: Z12.11 Encounter for screening for malignant neoplasm of colon (principal); K57.30 Diverticulosis of large intestine without perforation or abscess without bleeding; D12.3 Benign neoplasm of transverse colon; K21.00 Gastro-esophageal reflux disease with esophagitis, without bleeding; K22.70 Barrett's esophagus without dysplasia; Z87.891 Personal history of nicotine dependence
CPT/HCPCS: 45380; 43239; 87081; 88305; J2704; J7120

== ENCOUNTER 2022-11-08 08:52 | Outpatient (CLI) | payer BC, SELFPAY ==
[2022-11-08 09:07] LABS: Basophils Absolute Auto 0.1 K/mm3 (0.0-0.1); Basophils Percent Auto 1.1 % (0.2-1.2); Eosinophils Absolute Auto 0.1 K/mm3 (0-0.3); Eosinophils Percent Auto 2.9 % (0-4.4); Hematocrit 43.9 % (42.0-52.0); Hemoglobin 14.6 g/dL (14.0-18.0); Immature Granulocyte Absolute 0.02 K/mm3 (0.00-0.031); Immature Granulocyte Percent A 0.4 % (0-0.5); Lymphocytes Absolute Auto 1.17 K/mm3 (0.9-3.2); Lymphocytes Percent Auto 25.7 % (18.3-44.2); Mean Corpuscular HGB Conc 33.3 g/dl (32-36); Mean Corpuscular Hemoglobin 30.9 pg (26-34); Mean Platelet Volume 9.9 fl (7.4-10.4); Monocytes Absolute Auto 0.6 K/mm3 (0.1-0.6); Monocytes Percent Auto 12.5 % (2.6-8.5); Neutrophils Absolute Auto 2.6 K/mm3 (1.3-6.7); Neutrophils Percent Auto 57.4 % (45.5-73.1); Platelet Count Result 268 k/mm3 (150-375); Red Blood Count 4.72 M/mm3 (4.6-6.20); Red Cell Distribution Width 12.2 % (11.5-14.5); White Blood Count 4.6 K/mm3 (4.5-10.0)
[2022-11-08 09:12] LABS: Blood Urea Nitrogen 22 mg/dL (8-26); Carbon Dioxide 23 mmol/L (22-30); Chloride 107 mmol/L (98-109); Estimated CRCL calculation 50 ml/min; Estimated Glomerular Filt Rate 51; Glucose 123 mg/dL (70-105); Ionized Calcium (POC) 1.16 mmol/L (1.11-1.31); Potassium 4.1 mmol/L (3.5-4.9); Sodium 142 mmol/L (138-146)
[2022-11-08 12:13] LABS: Alanine Aminotransferase 38 U/L (6-50); Albumin Level 4.2 g/dL (3.5-5.1); Alkaline Phosphatase 76 U/L (38-126); Anion Gap 9 mmol/L (8-16); Aspartate Amino Transferase 33 U/L (17-59); Bilirubin,Total 0.5 mg/dL (0.2-1.3); Blood Urea Nitrogen 22 mg/dL (9-20); Calcium 8.8 mg/dL (8.4-10.2); Carbon Dioxide 22 mmol/L (22-30); Chloride 108 mmol/L (98-107); Estimated Glomerular Filt Rate 51; Glucose 120 mg/dL (65-110); Lactate Dehydrogenase 165 U/L (120-246); Potassium 4.1 mmol/L (3.4-5.0); Sodium 139 mmol/L (137-145)
== END 2022-11-08 08:53 | disposition home or self-care (01) ==
LOC: ANHLAB 08:54
PROVIDERS: PCP Family Medicine; Visit Provider Internal Medicine Hematology & Oncology
DX: C83.00 Small cell B-cell lymphoma, unspecified site (principal)
CPT/HCPCS: 36415; 80047; 80053; 83615; 85025

== ENCOUNTER 2023-01-02 11:01 | Emergency (ER) | payer BC, SELFPAY ==
[2023-01-02 11:49] VITALS: BP 123/87; PULSE 71; RESP 18; TEMP 36; O2SAT 100
--- NOTE | 2023-01-02 12:43 | ED.GENADULT ---
HPI - General Adult General Chief complaint: Skin/Abscess/Foreign Body Stated complaint: insect Time Seen by Provider: 01/02/23 12:44 Source: patient Mode of arrival: ambulatory Limitations: no limitations History of Present Illness HPI narrative: 62-year-old male patient presents to [facility] today with a groin wound that he is unsure of whether started as a insect bite or an ingrown hair. He reports he was in the [facility] 3 weeks ago when he noticed a sore with a white head in his right groin and it popped and had lots of pus and bleeding . At the time he cleaned it out with alcohol and hydrogen peroxide and it seemed to be healing for the next 2 days until it opened up again. It continued to weep so he went to the pharmacy in the [facility] and got a 7 day course of 500 mg amoxicillin. They just got back from the [facility] in the wound still hurts and has started to make a hole in his skin . patient denies fevers body aches or chills currently. Related Data Home Medications Medication Instructions Recorded Confirmed rosuvastatin 10 mg tablet 10 tablet PO HS 07/28/21 01/02/23 fenofibrate nanocrystallized 145 145 mg PO DAILY 01/02/23 01/02/23 mg tablet Allergies Allergy/AdvReac Type Severity Reaction Status Date / Time No Known Allergies Allergy Mild Verified 01/02/23 12:28 Review of Systems Review of Systems: CONSTITUTIONAL: Denies fever, chills, or sweats. EYES: Denies visual changes, redness, or discharge. ENT: Denies rhinorrhea, congestion, sore throat, or otalgia. CARDIOVASCULAR: Denies chest pain, palpitations, or edema. RESPIRATORY: Denies cough or dyspnea. GASTROINTESTINAL: Denies abdominal pain, nausea, vomiting, or diarrhea. GENITOURINARY: Denies dysuria or hematuria. SKIN: positive hole in the right groin with weeping, pain, and occasional pus. MUSCULOSKELETAL: Denies back pain, joint pain, or myalgia. NEUROLOGIC: Denies headache, numbness, or weakness. PSYCHIATRIC: Denies anxiety or depression. [facility] Surgical History Surgical History History of lumbar surgery Social History Social History Years smoked: 15 Smoking status: Former smoker Tobacco type: cigarettes Smoking end date: 02/14/02 Alcohol intake: never Substance use: never Substance use type: does not use Living arrangements: with family Spiritual care concerns: No Comments At the time of my signature I agree with nursing past medical history, surgical, social, and family history. There is no relevant family history pertinent to the presenting complaint. Exam Narrative: GENERAL: Well-appearing, well-nourished, and in no acute distress. HEAD: Normocephalic, atraumatic. EYES: PERRLA and EOMI. ENT: Nares clear, no rhinorrhea or epistaxis. Mucous membranes moist. NECK: Supple. No lymphadenopathy CHEST: Clear to auscultation. No respiratory distress. HEART: Regular rate and rhythm. No murmur heard. Normal peripheral pulses. ABDOMEN: Soft, nontender, nondistended, normal active bowel sounds. EXTREMITIES: Normal range of motion. No edema. SKIN: 0.5 cm by 0.5 cm tunneling wound to the right groin lateral to the patient's scrotum. Wound bed looks deep red without eschar. granulation tissue is present showing healthy signs of wound healing. No signs of for purulent drainage. edges of wound at the most superficial surface have a hardened feel and at approximately 3:00 lateral area of the wound there is a hard nodular subcutaneous mass. NEURO: No focal deficits. Alert and oriented x3. Course Course Emergency Course: Some portions of this charting have been completed using voice recognition software Level of Care: Express Care Visit Vital Signs Vital signs: Vital Signs Temperature 36.0 C L 01/02/23 11:49 Pulse Rate 71 01/02/23 11:49 Respiratory Rate 18 01/02/23 11:49 Blood P
== END 2023-01-02 13:11 | disposition home or self-care (01) ==
PROVIDERS: Emergency Provider Nurse Practitioner Family
DX: L02.214 Cutaneous abscess of groin (principal); Z79.899 Other long term (current) drug therapy; Z87.891 Personal history of nicotine dependence
CPT/HCPCS: 10060; 81003; 87070; 87205; 99213; G0463

== ENCOUNTER 2023-05-10 15:19 | Outpatient (CLI) | payer BC, SELFPAY ==
[2023-05-10 15:34] LABS: Basophils Absolute Auto 0.1 K/mm3 (0.0-0.1); Basophils Percent Auto 0.7 % (0.2-1.2); Eosinophils Absolute Auto 0.1 K/mm3 (0-0.3); Eosinophils Percent Auto 1.9 % (0-4.4); Hematocrit 44.8 % (42.0-52.0); Hemoglobin 15.1 g/dL (14.0-18.0); Immature Granulocyte Absolute 0.03 K/mm3 (0.00-0.031); Immature Granulocyte Percent A 0.4 % (0-0.5); Lymphocytes Absolute Auto 3.15 K/mm3 (0.9-3.2); Lymphocytes Percent Auto 45.6 % (18.3-44.2); Mean Corpuscular HGB Conc 33.7 g/dl (32-36); Mean Corpuscular Hemoglobin 30.7 pg (26-34); Mean Corpuscular Volume 91.1 fl (80-100); Mean Platelet Volume 10.5 fl (7.4-10.4); Monocytes Absolute Auto 0.6 K/mm3 (0.1-0.6); Neutrophils Percent Auto 43.4 % (45.5-73.1); Platelet Count Result 271 k/mm3 (150-375); Red Blood Count 4.92 M/mm3 (4.6-6.20); Red Cell Distribution Width 12.9 % (11.5-14.5); White Blood Count 6.9 K/mm3 (4.5-10.0)
[2023-05-10 16:04] LABS: Atypical Lymphocytes Present; Platelet Estimate Adequate (Adequate); Schistocytes None Seen
[2023-05-10 17:05] LABS: Anion Gap 11 mmol/L (4-12); Blood Urea Nitrogen 20 mg/dL (9-20); Calcium 9.6 mg/dL (8.4-10.2); Carbon Dioxide 20 mmol/L (22-30); Chloride 111 mmol/L (98-107); Estimated Glomerular Filt Rate 51; Glucose 155 mg/dL (65-110); Lactate Dehydrogenase 185 U/L (120-246); Potassium 3.8 mmol/L (3.4-5.0); Sodium 142 mmol/L (137-145)
== END 2023-05-10 15:20 | disposition home or self-care (01) ==
LOC: ANHLAB 15:22
PROVIDERS: Visit Provider Internal Medicine Hematology & Oncology
DX: C83.00 Small cell B-cell lymphoma, unspecified site (principal)
CPT/HCPCS: 36415; 80048; 83615; 85025

== ENCOUNTER 2023-05-28 16:38 | Emergency (ER) | payer BC, SELFPAY ==
--- NOTE | ~2023-05-28 | US_ITS ---
EXAMINATION: US scrotum doppler DATE: 05/28/2023 17:32 INDICATION: Right testicular pain. TECHNIQUE: Grayscale and Doppler ultrasound images of the testes were obtained. COMPARISON: CT abdomen and pelvis 02/22/2022 FINDINGS: The right testis measures 3.8 x 1.9 x 2.4 cm. The left testis measures 4.1 x 2.1 x 2.4 cm. There is normal vascular flow to both testes. The right epididymis is normal with normal vascular sven w. The left epididymis is normal with normal vascular flow. There is no hydrocele. There are bilatera l varicoceles. IMPRESSION: 1. Bilateral varicoceles. Reviewed, dictated and finalized at location E. IMPRESSION: 1. Bilateral varicoceles.
[2023-05-28 16:40] VITALS: BP 140/110; PULSE 101; RESP 18; TEMP 36.4; O2SAT 99
[2023-05-28 17:41] LABS: Appearance Urine Clear (Clear); Bilirubin Urine Negative (Negative); Blood Urine Negative (Negative); Color Urine Yellow (Yellow); Glucose Urine UA Negative (Negative); Ketones Urine Negative (Negative); Leukocyte Esterase Ur Negative LEU/UL (Negative); Nitrate Urine Negative (Negative); Protein Urine Negative (Negative); Specific Grav Ur 1.019 (1.001-1.035); Urobilinogen Urine 0.2 mg/dL (<2.0)
[2023-05-28 17:52] LABS: Add Urine Microscopic? NO
[2023-05-28 18:45] LABS: Trichomonas Vag PCR NOT DETECTED (NOT DETECTE)
--- NOTE | 2023-05-28 18:55 | ED.GENADULT ---
[facility] - General Adult General Chief complaint: Unspecified Stated complaint: groin pain Time Seen by Provider: 05/28/23 18:23 Source: patient Mode of arrival: ambulatory Limitations: no limitations History of Present Illness HPI narrative: This is a 63-year-old male with PMH of leukemia in remission who presents to the ED with chief complaint of groin pain that began a couple of days ago. Reports primarily located on the right side but has noticed some discomfort on the left as well. Patient reports right testicular pain and swelling. He states overall the swelling was worse last night and seemed to be little better today. also reports recent diagnosis of BPH and has been on tamsulosin for difficulty with urination. Denies dysuria, hematuria, abdominal pain, nausea, vomiting, testicular skin changes. Denies any concern for STD. Denies any history of blood clot. Related Data Home Medications Medication Instructions Recorded Confirmed rosuvastatin 10 mg tablet 10 tablet PO HS 07/28/21 01/02/23 fenofibrate nanocrystallized 145 145 mg PO DAILY 01/02/23 01/02/23 mg tablet Allergies Allergy/AdvReac Type Severity Reaction Status Date / Time No Known Allergies Allergy Mild Verified 05/28/23 16:44 Review of Systems Review of Systems: All systems as dictated in [facility] Surgical History Surgical History History of lumbar surgery Social History Social History Years smoked: 15 Smoking status: Former smoker Tobacco type: cigarettes Smoking end date: 02/14/02 Alcohol intake: never Substance use: never Substance use type: does not use Living arrangements: with family Spiritual care concerns: No Exam Narrative: GENERAL: Well-appearing, well-nourished, and in no acute distress. HEAD: Normocephalic, atraumatic. EYES: PERRLA and EOMI. ENT: Nares clear, no rhinorrhea or epistaxis. Mucous membranes moist. Oropharynx without tonsillar hypertrophy exudate or other lesions. NECK: Supple. No adenopathy or masses. CHEST: No respiratory distress. Clear to auscultation. No wheezes rales or rhonchi HEART: Regular rate and rhythm. No murmur heard. Normal peripheral pulses. ABDOMEN: Soft, nontender, nondistended, normal active bowel sounds. MSK: Normal range of motion. No edema. SKIN: Warm, dry, no rash. NEURO: Alert and oriented x3. No focal deficits. PSYCH: Normal mood and affect. : Mild testicular swelling bilaterally, worse on the right. No external skin changes. No necrotic skin. No penile tenderness or discharge. Very minimal tenderness to the scrotal exam. No evidence of hernia. Course Vital Signs Vital signs: Vital Signs Temperature 97.5 F L 05/28/23 16:40 Pulse Rate 101 H 05/28/23 16:40 Respiratory Rate 18 05/28/23 16:40 Blood Pressure 140/110 H 05/28/23 16:40 Pulse Oximetry 99 05/28/23 16:40 Oxygen Delivery Room Air 05/28/23 16:40 Temperature 97.5 F L 05/28/23 16:40 Pulse Rate 101 H 05/28/23 16:40 Respiratory Rate 18 05/28/23 16:40 Blood Pressure 140/110 H 05/28/23 16:40 Pulse Oximetry 99 05/28/23 16:40 Oxygen Delivery Room Air 05/28/23 16:40 Medical Decision Making MDM Narrative Medical decision making narrative: this is a 63-year-old male who presents to the ED with chief complaint of testicular discomfort and swelling for the past couple of days. Vitals are normal. Exam shows mild bilateral swelling, worse on the right with mild tenderness. No skin changes or findings of necrosis. No evidence of Aaliyah's gangrene. Ultrasound Doppler shows bilateral varicoceles. No testicular torsion. Discussed with the radiologist (Dr. Means) about potentially a ordering further imaging since there is a right-sided varicocele. He is reassured that it is bilateral and not a unilateral right varicocele. States ther
[2023-05-28 19:10] LABS: Chlamydia trachomatis NOT DETECTED (NOT DETECTE); Neisseria gonorrhoeae PCR NOT DETECTED (NOT DETECTE)
== END 2023-05-28 19:04 | disposition home or self-care (01) ==
PROVIDERS: Student in an Organized Health Care Education/Training Program; Emergency Provider Physician Assistant
DX: I86.1 Scrotal varices (principal); C95.91 Leukemia, unspecified, in remission; Z87.891 Personal history of nicotine dependence
CPT/HCPCS: 76870; 81003; 87491; 87591; 87661; 93976; 99284

== ENCOUNTER 2023-11-23 10:55 | Outpatient (CLI) | payer BC, SELFPAY ==
[2023-11-23 11:07] LABS: Basophils Absolute Auto 0.1 K/mm3 (0.0-0.1); Basophils Percent Auto 0.5 % (0.2-1.2); Eosinophils Absolute Auto 0.2 K/mm3 (0-0.3); Eosinophils Percent Auto 1.7 % (0-4.4); Hematocrit 44.2 % (42.0-52.0); Hemoglobin 14.8 g/dL (14.0-18.0); Immature Granulocyte Absolute 0.03 K/mm3 (0.00-0.031); Immature Granulocyte Percent A 0.3 % (0-0.5); Lymphocytes Absolute Auto 3.83 K/mm3 (0.9-3.2); Lymphocytes Percent Auto 40.2 % (18.3-44.2); Mean Corpuscular HGB Conc 33.5 g/dl (32-36); Mean Corpuscular Hemoglobin 30.6 pg (26-34); Mean Corpuscular Volume 91.3 fl (80-100); Mean Platelet Volume 10.5 fl (7.4-10.4); Monocytes Absolute Auto 2.1 K/mm3 (0.1-0.6); Monocytes Percent Auto 22.5 % (2.6-8.5); Neutrophils Absolute Auto 3.3 K/mm3 (1.3-6.7); Neutrophils Percent Auto 34.8 % (45.5-73.1); Platelet Count Result 244 k/mm3 (150-375); Red Blood Count 4.84 M/mm3 (4.6-6.20); Red Cell Distribution Width 12.9 % (11.5-14.5); White Blood Count 9.5 K/mm3 (4.5-10.0)
[2023-11-23 11:16] LABS: Atypical Lymphocytes Present; Platelet Estimate Adequate (Adequate); Schistocytes None Seen
[2023-11-23 12:32] LABS: Anion Gap 9 mmol/L (4-12); Blood Urea Nitrogen 20 mg/dL (9-20); Calcium 9.3 mg/dL (8.4-10.2); Carbon Dioxide 23 mmol/L (22-30); Chloride 106 mmol/L (98-107); Estimated Glomerular Filt Rate 55; Glucose 128 mg/dL (65-110); Potassium 3.8 mmol/L (3.4-5.0); Sodium 138 mmol/L (137-145)
== END 2023-11-23 10:56 | disposition home or self-care (01) ==
LOC: ANHLAB 10:56
PROVIDERS: Visit Provider Internal Medicine Hematology & Oncology
DX: C83.00 Small cell B-cell lymphoma, unspecified site (principal)
CPT/HCPCS: 36415; 80048; 85025

== ENCOUNTER 2024-03-28 10:05 | Outpatient (CLI) | payer OTHER, SELFPAY ==
--- NOTE | ~2024-03-28 | CT_ITS ---
EXAMINATION: CT abdomen pelvis w con DATE: 03/28/2024 10:33 INDICATION: Generalized abdominal pain. TECHNIQUE: Computed tomography (CT) of the abdomen and pelvis was performed with 100 mL Omnipaque 350 intravenous contrast. Automated exposure control and iterative reconstruction technique were employe d. The dose-length product was 894.52 mGy-cm. COMPARISON: CT 02/22/2022 FINDINGS: The visualized portions of the lung bases are clear without pneumonia or pleural effusion. The heart size is normal. No pericardial effusion. The liver is normal. The gallbladder is normal in size and filled with gallstones. The spleen, pancreas, and right adrenal gland are normal. There is a 10 mm mass in left adrenal gland containing fat, consistent with a myelolipoma. Right kidney is norm al. There is a 2.3 cm cyst in left kidney. There are changes of right inguinal hernia repair. There i s a left inguinal hernia containing fat. The prostate is moderately enlarged. There is diverticulosis of the colon without evidence of diverticulitis. The appendix is normal. There is mild mesenteric an d pericecal iliac lymphadenopathy. For example, a periceliac node measures 18 x 14 mm. There is sever e lumbar spondylosis and moderate thoracic spondylosis. There is mild chronic anterior wedging of T11 and T12 vertebral bodies. IMPRESSION: 1. Worsened mild mesenteric and periceliac lymphadenopathy, consistent with lymphoma. 2. Left inguinal hernia containing fat. Reviewed, dictated and finalized at location A. VENDOR IMPRESSION: 1. Worsened mild mesenteric and periceliac lymphadenopathy, consistent with lym phoma. 2. Left inguinal hernia containing fat.
[2024-03-28 10:23] LABS: Estimated Glomerular Filt Rate 43
== END 2024-03-28 10:06 | disposition home or self-care (01) ==
LOC: MICIMG 10:07
PROVIDERS: PCP Internal Medicine Hematology & Oncology; Visit Provider Internal Medicine Hematology & Oncology
DX: R10.84 Generalized abdominal pain (principal); K40.90 Unilateral inguinal hernia, without obstruction or gangrene, not specified as recurrent
CPT/HCPCS: 74177; Q9967

== ENCOUNTER 2024-11-06 09:41 | Outpatient (CLI) | payer OTHER, SELFPAY ==
[2024-11-06 10:09] LABS: Hematocrit 46.9 % (42.0-52.0); Hemoglobin 15.3 g/dL (14.0-18.0); Immature Granulocyte Percent A 0.2 % (0-0.5); Lymphocytes Absolute Auto 13.49 K/mm3 (0.9-3.2); Mean Corpuscular HGB Conc 32.6 g/dl (32-36); Mean Corpuscular Hemoglobin 30.9 pg (26-34); Mean Corpuscular Volume 94.7 fl (80-100); Nucleated Red Blood Cells Absolute Auto 0.000 K/mm3 (0.0-0.012); Nucleated Red Blood Cells Perc 0.0 % (0.0-0.2); Platelet Count Result 236 k/mm3 (150-375); Red Blood Count 4.95 M/mm3 (4.6-6.20); White Blood Count 25.9 K/mm3 (4.5-10.0)
[2024-11-06 10:15] LABS: Schistocytes None Seen
[2024-11-06 10:17] LABS: Smudge Cells PRESENT
--- OUTSIDE RECORDS SUMMARY | 2024-11-06 10:29 | XMS_ITS | Clinical Summary ---
Author Organization [employer] Address [address] [place] [address] Care Team Providers Care Landscape Crew Leader Name Role Phone Wanda Carrillo MD Primary Care Provider [phone] Source Comments [facility],non-owned Affiliates and Associated Physician Practices is amultiple site organization consisting of ambulatory clinics and hospital sitesin [place], [place], [place] and [place]. This disclosure is being madepursuant to the Care Everywhere program and may not contain all information available regarding this patient. Last updated 17.[facility] Allergies No known active allergies Medications * Be aware that medications may not be up to date on this document. Alwaysverify current medications with the patient. metFORMIN (GLUCOPHAGE) 500 MG tablet Take 500 mg by mouth 2 times daily with morning and evening meal Active Social History Tobacco Use Types Packs/Day Years Used Date Smoking Tobacco: Former Smokeless Tobacco: Never Alcohol Use Standard Drinks/Week Comments No 0 (1 standard drink = 0.6 oz pur e alcohol) Sex and Gender Information Value Date Recorded Sex Assigned at Not on file Legal Sex Male 10:05 AM CDT Gender Identity Not on file Sexual Orientation Not on file Last Filed Vital Signs Vital Sign Reading Time Taken Comments Blood Pressure 103/68 05/30/2017 3:50 PM CDT Pulse 63 05/30/2017 3:50 PM CDT Temperature 36.3 C (97.4 F) 05/30/2017 1:59 PM CDT Respiratory Rate 15 05/30/2017 3:50 PM CDT Oxygen Saturation 96% 05/30/2017 3:50 PM CDT Inhaled Oxygen Concentration - - Weight 81.6 kg (180 lb) 05/30/2017 2:08 PM CDT Height 167.6 cm (5' 6) 05/30/2017 2:08 PM CDT Body Mass Index 29.05 05/30/2017 2:08 PM CDT Plan of Treatment Health Maintenance Due Date Last Done Comments COLOGUARD (AGES 45-75) - COL ON CA SCREENING 1960 CT COLONOGRAPHY - COLON CA SCREENING 1960 FIT - COLON CA SCREENING 1960 FLEX SIG - COLON CA SCREENING 1960 LIPID TESTING 1960 HEPATITIS C SCREENING 03/05/1976 DTAP/TDAP/TD VACCINES (1 - Tdap) 1977 PNEUMOCOCCAL VACCINE 50+ (1 of 1 - PCV) 2008 ZOSTER VACCINE (1 of 2) 2008 SCREENING FOR DIABETES 05/30/2020 05/30/2017 COLON MONITORING 05/30/2022 05/30/2017, 05/30/2017, 05/30/2017 Colorectal Cancer Screening 05/30/2022 AAA SCREENING 2023 DEPRESSION SCREENING 02/15/2024 COVID-19 VACCINE (1 - 2023-2 5 season) 2024 INFLUENZA VACCINE (#1) 2024 COLONOSCOPY - COLON CA SCREENING 05/31/2027 05/30/2017, 05/30/2017, 05/30/2017 Respiratory Syncytial Virus (RSV) Vaccine Pt: or over 60 yrs (1 - 1-dose 75+ series) 2033 HEPATITIS B VACCINE Aged Out No longe r eligible based on patient's age to complete this topic HIB VACCINE Aged Out No longer eligi ble based on patient's age to complete this topic HPV VACCINE Aged Out No longer eligi ble based on patient's age to complete this topic MENINGOCOCCAL (Group B) VACCINE SHARED DECISION-MAKING Aged Out No longer eligible based on patient's age to complete this topic MENINGOCOCCAL GROUPS A/C/Y/W VACCINE Aged Out No longer eligible b ased on patient's age to complete this topic Procedures Procedure Name Priority Date/Time Associated Diagnosis Comments ENDOSCOPY, COLON, SCREENING Routine 05/30/2017 3:04 PM CDT GLUCOSE - POINT OF CARE Routine 05/30/2017 2:24 PM CDT from Last 3 Months or Most Recently Relevant to Health Maintenance Results * ENDOSCOPY, COLON, SCREENING (05/30/2017 3:04 PM CDT) Report Endoscopy POC _ Patient Name: Satish Steiner Procedure Date: 05/30/2017 3:04 PM Date of : 1960 Admit Type: Outpatient Age: 57 Gender: Male Attending MD: Abdulkadir Lindo , _ Procedure: Colonoscopy Indications: Screening in patient at increased risk: Family history of 1st-degree relative with colorectal cancer Providers: Abdulkadir Lindo (Doctor), Gracie Florez RN, Paola Alegria Patient Profile: 57M here for high risk screening. Fhx CRC brother. no prior exams Referring MD: Wanda Carrillo Md (Referring MD) Medicines: Monitored Anesthesia Care Complications: No immediate complications. _ Procedure: After I obtained informed consent, the scope was passed under direct vision. Throughout the procedure, the patient's blood pressure, pulse, and oxygen saturations were monitored continuously. The Colonoscope was introduced through the anus and advanced to the cecum, identified by appendiceal orifice and ileocecal valve. The colonoscopy was performed without difficulty. The patient tolerated the procedure well. The quality of the bowel preparation was good. Impression: - One 5 mm polyp in the ascending colon, removed with a jumbo cold forceps. Resected and retrieved. - Diverticulosis in the sigmoid colon and in the descending colon. - The examination was otherwise normal on direct and retroflexion views. Findings: The perianal and digital rectal examinations were normal. A 5 mm polyp was found in the ascending colon. The polyp was sessile. The polyp was removed with a jumbo cold forceps. Resection and retrieval were complete. A few small and large-mouthed diverticula were found in the sigmoid colon and in the descending colon. The exam was otherwise without abnormality on direct and retroflexion views. _ Recommendation: - High fiber diet. - Await pathology results. - Repeat colonoscopy in 5 years for surveillance. Procedure Code(s): --- Professional --- 65291, Colonoscopy, flexible; with biopsy, single or multiple --- Technical --- 05178, Colonoscopy, flexible; with biopsy, single or multiple Diagnosis Code(s): --- Professional --- Z80.0, Family history of malignant neoplasm of digestive organs D12.2, Benign neoplasm of ascending colon --- Technical --- Z80.0, Family history of malignant neoplasm of digestive organs D12.2, Benign neoplasm of ascending colon CPT copyright 2015 [employer]. All rights reserved. The codes documented in this report are preliminary and upon mud mill tender review may be revised to meet current compliance requirements. Abdulkadir Lindo, 05/30/2017 3:35:05 PM This report has been signed electronically. Number of Addenda: 0 Note Initiated On: 05/30/2017 3:04 PM [facility] 05/30/2017 3:04 PM CDT Narrative Procedure Note Abdulkadir Lindo MD - 05/30/2017 3:35 PM CDT Colonoscopy Scattered diverticulosis Small asc colon polyp resected Fhx CRC Await path Rpt colonoscopy 5 yrs Abdulkadir Lindo MD GI PROCEDURE ORDERABLES Edited R esult - Final [facility] * GLUCOSE - POINT OF CARE (05/30/2017 2:24 PM CDT) Pathologist [facility] Glucose WB/POC 75 70 - 106 mg/dL 05/30/2017 2:30 PM CDT [facility] Blood BLOOD SPECIMEN / Unknown 05/30/2017 2:24 PM CDT 05/30/2017 2:30 PM CDT Abdulkadir Lindo MD LAB - POINT OF CARE ORDERABLES F inal Result Performing Organization Address City/[facility] Co de Phone Number [facility] [address] [place] [address] from Last 3 Months or Most Recently Relevant to Health Maintenance Insurance CIG [facility] Care Teams Landscape Crew Leader Relationship Specialty Start Date End Date Wanda Carrillo MD [address] [place] [address] PCP - General Internal Medicine 05/26/17
--- OUTSIDE RECORDS SUMMARY | 2024-11-06 10:29 | XMS_ITS | Clinical Summary ---
Author Organization [facility] [address] [place] [id number] Care Team Providers Care Boat Rental Clerk Name Role Phone Garrison Rebolledo MD Primary Care Provider [phone] Allergies No known active allergies Medications phentermine (ADIPEX-P) 37.5 mg tablet TK 1 T PO QAM 2 7 Active gabapentin (NEURONTIN) 300 mg capsule Take 1 capsule (300 mg total) by mouth 3 (three) times a day. 180 capsule 1 8 Active Additional Information Patient not taking.Reported on 04/15/2017 oxyCODONE (ROXICODONE) 5 mg immediate release tabletIndicatio ns:Pain Take 1 tablet (5 mg total) by mouth every 4 (four) hours as needed for pain. 70 tablet 8 Active Additional Information Patient not taking.Reported on 04/15/2017 acetaminophen (TYLENOL) 500 mg tablet Take 1 tablet (500 mg total) by mouth every 6 (six) hours as needed for pain. 120 tablet 8 Active Additional Information Patient not taking.Reported on 04/15/2017 ondansetron (ZOFRAN) 4 mg tablet Take 1 tablet (4 mg total) by mouth every 8 (eight) hours as needed for nausea or vomiting. 30 tablet 8 Active Additional Information Patient not taking.Reported on 04/15/2017 HYDROcodone-yumiko taminophen (NORCO) 5-325 mg per tabletIndicatio ns:Pain Take 1-2 tablets every 4 hours as needed for pain 40 tablet 8 Active Additional Information Patient not taking.Reported on 06/17/2017 metFORMIN (GLUCOPHAGE) 500 mg tablet Take 500 mg by mouth. 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 02/28/2017 L4-5 lateral recess stenosis with right L5 radic ulopathy 02/28/2017 Surgical History Surgery Date Site/Laterality Comments HERNIA REPAIR 02/14/2001 - 02/13/2002 CYST REMOVAL 12/15/2016 - 01/13/2017 Left EYE SURGERY Right in childhood BACK SURGERY 03/31/2017 Microdiscectomy and hemilaminectomy Medical History Medical History Date Comments Spinal stenosis Family History Medical History Relation Name Comments Cancer Brother Breast cancer Mother Relation Name Status Comments Brother Mother Social History Tobacco Use Types Packs/Day Years Used Date Smoking Tobacco: Former Smokeless Tobacco: Never Alcohol Use Standard Drinks/Week Comments No 0 (1 standard drink = 0.6 oz pur e alcohol) Sex and Gender Information Value Date Recorded Sex Assigned at Not on file Legal Sex Male 8:44 AM APPAREL PATTERNMAKER Gender Identity Not on file Sexual Orientation Not on file 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 Not on file Not on file Obstetrics History Last Filed Vital Signs Vital Sign Reading Time Taken Comments Blood Pressure 120/68 04/15/2017 10:35 AM APPAREL PATTERNMAKER Pulse 71 03/31/2017 4:48 PM APPAREL PATTERNMAKER Temperature 36.1 C (97 F) 03/31/2017 3:40 PM APPAREL PATTERNMAKER Respiratory Rate 11 03/31/2017 4:48 PM APPAREL PATTERNMAKER Oxygen Saturation 98% 03/31/2017 4:48 PM APPAREL PATTERNMAKER Inhaled Oxygen Concentration - - Weight 80.3 kg (177 lb) 06/17/2017 12:03 PM CDT Height 168.9 cm (5' 6.5) 06/17/2017 12:03 PM CD T Body Mass Index 28.14 06/17/2017 12:03 PM CDT Plan of Treatment Not on file Insurance [employer] [place], [place] [id number] Care Teams Boat Rental Clerk Relationship Specialty Start Date End Date Garrison Rebolledo MD PCP - General Family Medicine 02/18/17
--- OUTSIDE RECORDS SUMMARY | 2024-11-06 10:29 | XMS_ITS | Clinical Summary ---
Author Organization [facility] Address [address] [place] [address] Care Team Providers Care Finance Professional Name Role Phone Unavailable Primary Care Provider Unavailabl e Social History Tobacco Use Types Packs/Day Years Used Date Smoking Tobacco: Never Assessed Sex and Gender Information Value Date Recorded Sex Assigned at Not on file Legal Sex Male 7:21 PM CDT Gender Identity Not on file Sexual Orientation Not on file Plan of Treatment Health Maintenance Due Date Last Done Comments Colorectal Cancer Screening Colonoscopy (10 Years) 1960 Hepatitis C 1976 DTaP, Tdap and Td Vaccines ( 1 - Tdap) 1977 Pneumococcal Vaccine: 50+ Ye ars (1 of 1 - PCV) 2008 Zoster Vaccines (1 of 2) 2008 COVID-19 Vaccine ( - 2023-2 5 season) 2024 RSV Immunization or 60+ Years (1 - 1-dose 75+ series) 2033 Meningococcal B Vaccine Aged Out No l onger eligible based on patient's age to complete this topic Meningococcal Vaccine Aged Out No chloe jn eligible based on patient's age to complete this topic RSV Immunizations Under 20 Months Aged Out No longer eligible based on patient's age to complete this topic
--- OUTSIDE RECORDS SUMMARY | 2024-11-06 10:29 | XMS_ITS | Encounter Summary ---
Author Organization [facility] Address [address] [place] [address] Care Team Providers Care Soldering Machine Operator Automatic Name Role Phone Wanda Carrillo MD Primary Care Provider [phone] Encounter Details Date Type Department Care Team (Late st Contact Info) Description 06/10/2021 Lab Requisition [facility] Care Pathology Lab [address] [place] [address] Jose Luis Shah MD [address] [address] Illness, unspecified Social History Tobacco Use Types Packs/Day Years Used Date Smoking Tobacco: Former Smokeless Tobacco: Never Alcohol Use Standard Drinks/Week Comments No 0 (1 standard drink = 0.6 oz pur e alcohol) Sex and Gender Information Value Date Recorded Sex Assigned at Not on file Legal Sex Male 10:05 AM CDT Gender Identity Not on file Sexual Orientation Not on file documented as of this encounter Plan of Treatment Not on file documented as of this encounter Procedures Procedure Name Priority Date/Time Associated Diagnosis Comments PATHOLOGY TISSUE Routine 06/08/2021 9:48 AM CDT Illness, unspecified documented in this encounter Results * PATHOLOGY TISSUE (06/08/2021 9:48 AM CDT) Case Report Surgical Pathology Report Case: [id number] Authorizing Provider: Jose Luis Shah MD Collected: 06/08/2021 09:48 AM Ordering Location: [facility] Care Pathology Lab Received: 06/10/2021 03:31 PM Pathologist: Ellyn Ruff Mai, DO Specimen: Lymph Node Biopsy, Left Neck 06/11/2021 10:26 AM [facility] Final Diagnosis Left neck lymph node, ultrasound-guided core biopsy: - Chronic lymphocytic leukemia/small lymphocytic lymphoma 06/11/2021 10:26 AM [facility] at 1026 CDT Microscopic Description and Comment Sections show fragments of a lymph node with effacement of normal architecture by small to intermediate sized mature lymphocytes including occasional enlarged forms with conspicuous nucleoli. There is no necrosis or sheeting of large cells in this sample. 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 COMMENT: The findings are in agreement with the flow cytometry impression of small lymphocytic lymphoma/chronic lymphocytic leukemia (CLL/SLL). The absence of cyclin D1 and SOX11 excludes mantle cell lymphoma. 06/11/2021 10:26 AM [facility] Clinical History Cervical lymphadenopathy 06/11/2021 10:26 AM [facility] Materials Received Received are 2 slide(s) and 1 block (A1) labeled [id number] along with a copy of the outside pathology report. [place] [address]. All original materials are returned to the referring institution, along with a copy of our final report. 06/11/2021 10:26 AM [facility] Disclaimer The performance characteristics of all immunohistochemical and indirect immunofluorescence stains (if any) cited in this report were determined by the Histopathology Laboratory of [facility]. Some of these tests were developed by our own laboratory and have not been cleared or approved by the US Food and Drug Administration. The FDA does not require this test to go through premarket FDA review. These tests are used for clinical purposes. They should not be regarded as investigational or for research. This laboratory is certified under the Clinical Laboratory Improvement Amendments (CLIA) as qualified to perform high complexity clinical laboratory testing. This case has been personally reviewed and interpreted by the attending (teaching) pathologist. 06/11/2021 10:26 AM CDT [facility] Embedded Images 06/11/2021 10:26 AM CDT [facility] Pathology/Cytolo gy BIOPSY OF LYMPH NODE / Unknown 06/08/2021 9:48 AM CDT 06/10/2021 3:31 PM CDT us Jose Luis Shah MD LAB - PATHOLOGY/CYTOLOGY ORDER ALLIE Final Result [facility] [address] [place], [place] [id number] [place] [address] documented in this encounter Visit Diagnoses Diagnosis Illness, unspecified documented in this encounter Care Teams Soldering Machine Operator Automatic Relationship Specialty Start Date End Date Wanda Carrillo MD [address] [place] [address] PCP - General Internal Medicine 05/26/17 documented as of this encounter
--- OUTSIDE RECORDS SUMMARY | 2024-11-06 10:29 | XMS_ITS | Clinical Summary ---
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 Encounters Date Type Department Care Team Description 10/30/2024 External Device Data [facility] ABSTRACTION Provider, Abstract 10/16/2024 External Device Data [facility] Provider, Abstract 10/03/2024 External Device Data [facility] Provider, Abstract 10/02/2024 External Device Data [facility] Provider, Abstract 09/18/2024 External Device Data [facility] Provider, Abstract 08/29/2024 External Device Data [facility] Provider, Abstract 08/29/2024 External Device Data [facility] Provider, Abstract from Last 3 Months Family History Medical History Relation Name Comments Breast Cancer Mother Relation Name Status Comments Brother Alive Father Mother Sister Alive Son 1 Alive Son 2 Alive Son 3 Alive Son 4 Alive Social History Tobacco Use Types Packs/Day Years Used Date Smoking Tobacco: Former Cigarettes 0.3 10 0 02/14/1971 - 02/14/1981 Smokeless Tobacco: Former Chew Tobacco Cessation:Counseling Given: Not Answered Alcohol Use Standard Drinks/Week Comments Yes 0 (1 standard drink = 0.6 oz pur e alcohol) occasional Sex and Gender Information Value Date Recorded Sex Assigned at Not on file Legal Sex Male 9:41 AM CDT Gender Identity Not on file Sexual Orientation Not on file Last Filed Vital Signs Vital Sign Reading Time Taken Comments Blood Pressure 124/85 11/24/2023 9:55 AM CDT Pulse 66 11/24/2023 9:55 AM CDT Temperature 36.6 C (97.8 F) 11/24/2023 9:55 AM CDT Respiratory Rate 15 11/24/2023 9:55 AM CDT Oxygen Saturation 97% 11/24/2023 9:55 AM CDT Inhaled Oxygen Concentration - - Weight 87 kg (191 lb 12.8 oz) 11/24/2023 9:55 AM CDT Height 170.2 cm (5' 7) 12/10/2021 8:35 AM CDT Body Mass Index 30.04 12/10/2021 8:35 AM CDT Plan of Treatment Upcoming Encounters Date Type Department Care Team (Late st Contact Info) Description 11/16/2024 8:45 AM CDT Office Visit [facility] Oncology and Hematology - [place] [address] [facility] [address] [place] [address] Adolfo Peck MD [address] [facility] [address] [place] [address] Health Maintenance Due Date Last Done Comments Pre-Diabetes and Diabetes Screening 1958 DTAP/TDAP/TD VACCINES (1 - Tdap) 1977 FIT-DNA Q 3 years 2003 FIT/FOBT Q 1 year 2003 Flex Sig/CT Colonography Q 5 years 2003 PNEUMOCOCCAL VACCINE 50+ YEARS (1 of 1 - PCV) 03/10/19 09 ZOSTER VACCINE (1 of 2) 2008 Abdominal Aortic Aneurysm (AAA) Screening 2023 Preventative Visit- Commercial 02/15/2024 05/20/2016 INFLUENZA VACCINE (#1) 2024 COLORECTAL SCREENING 05/31/2027 05/30/2017 Colorectal Cancer Screening 05/31/2027 RSV VACCINE (60+ or ) (1 - 1-dose 75+ series) 2033 Insurance [facility] OPEN ACCESS HMO Care Teams Business Intelligence Analyst Relationship Specialty Start Date End Date Garrison Rebolledo MD [address] [place] [address] PCP - General Family Practice 01/05/22
[2024-11-06 10:44] LABS: Alanine Aminotransferase 22 U/L (6-50); Albumin Level 4.2 g/dL (3.5-5.1); Alkaline Phosphatase 84 U/L (38-126); Anion Gap 10 mmol/L (4-12); Aspartate Amino Transferase 27 U/L (17-59); Bilirubin,Total 0.4 mg/dL (0.2-1.3); Blood Urea Nitrogen 17 mg/dL (9-20); Calcium 9.1 mg/dL (8.4-10.2); Carbon Dioxide 25 mmol/L (22-30); Chloride 108 mmol/L (98-107); Estimated Glomerular Filt Rate 56; Glucose 126 mg/dL (65-110); Potassium 4.4 mmol/L (3.4-5.0); Sodium 143 mmol/L (137-145); Total Protein 7.1 g/dL (6.3-8.2)
[2024-11-06 10:46] LABS: Cholesterol 217 mg/dL (0-200); HDL Direct 40 mg/dL; Magnesium 1.9 mg/dL (1.6-2.3); Triglycerides 140 mg/dL (<150); Uric Acid 8.2 mg/dL (3.5-8.5)
[2024-11-06 11:20] LABS: Thyroid Stimulating Hormone Reflex 2.480 uIU/mL (0.465-4.68)
[2024-11-06 11:28] LABS: Prostate Specific Antigen 2.1 ng/mL (< OR = 4.0)
[2024-11-06 12:03] LABS: Vitamin B12 465.0 pg/mL (239-931)
[2024-11-06 13:06] LABS: Hemoglobin A1C 6.3 % (<5.7)
== END 2024-11-06 09:42 | disposition home or self-care (01) ==
LOC: ANHLAB 09:43
PROVIDERS: PCP Internal Medicine Hematology & Oncology; Visit Provider Nurse Practitioner Family
DX: C83.00 Small cell B-cell lymphoma, unspecified site (principal); E11.9 Type 2 diabetes mellitus without complications; E56.8 Deficiency of other vitamins; E78.2 Mixed hyperlipidemia; E03.9 Hypothyroidism, unspecified; N40.0 Benign prostatic hyperplasia without lower urinary tract symptoms; M10.9 Gout, unspecified
CPT/HCPCS: 36415; 80053; 80061; 82306; 82607; 82746; 83036; 83735; 84153; 84443; 84550; 85025